=== PATIENT | male | born 1950 | race Caucasian/White ===

== ENCOUNTER → 2016-04-23 | Outpatient (CLI) | payer OTHER ==
[~2016-04-23] MED LIST: GADOBUTROL 10 ML VIAL IVP ONE
--- NOTE | 2016-04-23 13:22 | MR ---
MRI of the Brain(Without and With Contrast) Contrast: 7 mL intravenous Gadavist without complication. 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 Axial fast T2 2nd echo, GRE, diffusion and FLAIR im ages. Postgadolinium sagittal, axial and coronal images. Findings: There are slight differences in slice acquisition and significant difference in head positi on between the studies. The high right parietal operative cavity has significantly decreased in size and currently measures 7 x 5 mm with a small hemosiderin ring. There is no marginal or internal gadolinium enhancement. Adjac ent postoperative vasogenic edema has dramatically improved and only a limited amount remains. The [place] flap remains in anatomic alignment. There is no midline shift. Ventricular size is stable. The second, nonenhancing , right posterior parietal periventricular oval lesion (T1 hypointense, T2 h yperintense), has not significantly changed in size since November considering differences in techn ique, although it is impossible to exclude some new subtle localized edema along its posterior margin . A faint thin, subtle enhancing medullary vein is again present coursing horizontally through the l esion (axial image 177, series 10). There is still reduced diffusion within the lesion. Impression: 1. Healing of the right parietal operative bed. No evidence for locally recurrent disease . 2. Little if any change in a second right posterior parietal lesion, of undetermined etiology, possib ly representing a small low-grade glioma
== END ==
LOC: FIMAGING 10:11
PROVIDERS: ATTEND Internal Medicine Hematology & Oncology
DX: Z08 Encounter for follow-up examination after completed treatment for malignant neoplasm (principal); Z92.3 Personal history of irradiation; Z85.841 Personal history of malignant neoplasm of brain
CPT/HCPCS: 70553; A9585

== ENCOUNTER → 2016-08-12 | Outpatient (CLI) | payer OTHER | LOC: FIMAGING 16:49 | PROVIDERS: ATTEND Internal Medicine Hematology & Oncology | DX: Z08 Encounter for follow-up examination after completed treatment for malignant neoplasm (principal); Z85.841 Personal history of malignant neoplasm of brain; G93.9 Disorder of brain, unspecified | CPT/HCPCS: 70553; A9585 ==

== ENCOUNTER → 2016-11-17 | Outpatient (CLI) | payer OTHER | LOC: FIMAGING 09:57 | PROVIDERS: ATTEND Internal Medicine Hematology & Oncology | DX: Z98.890 Other specified postprocedural states (principal); H83.8X1 Other specified diseases of right inner ear; Z85.841 Personal history of malignant neoplasm of brain | CPT/HCPCS: 70553; A9585 ==

== ENCOUNTER → 2017-02-21 | Outpatient (CLI) | payer OTHER | LOC: FIMAGING 09:51 | PROVIDERS: ATTEND Internal Medicine Hematology & Oncology | DX: Z08 Encounter for follow-up examination after completed treatment for malignant neoplasm (principal); C71.9 Malignant neoplasm of brain, unspecified; R90.82 White matter disease, unspecified | CPT/HCPCS: 70553; A9585 ==

== ENCOUNTER → 2017-05-20 | Outpatient (CLI) | payer OTHER | LOC: FIMAGING 09:56 | PROVIDERS: ATTEND Internal Medicine Hematology & Oncology | DX: Z08 Encounter for follow-up examination after completed treatment for malignant neoplasm (principal); Z85.841 Personal history of malignant neoplasm of brain | CPT/HCPCS: 70553; A9585 ==

== ENCOUNTER → 2017-08-25 | Outpatient (CLI) | payer OTHER | LOC: FIMAGING 10:10 | PROVIDERS: ATTEND Internal Medicine Hematology & Oncology | DX: Z08 Encounter for follow-up examination after completed treatment for malignant neoplasm (principal); D33.3 Benign neoplasm of cranial nerves; Z85.841 Personal history of malignant neoplasm of brain; Z98.890 Other specified postprocedural states | CPT/HCPCS: 70553; A9585 ==

== ENCOUNTER → 2017-12-15 | Outpatient (CLI) | payer OTHER | LOC: FIMAGING 11:59 | PROVIDERS: ATTEND Internal Medicine Hematology & Oncology | DX: C71.9 Malignant neoplasm of brain, unspecified (principal); D33.3 Benign neoplasm of cranial nerves | CPT/HCPCS: 70553; A9585; 82565-PO ==

== ENCOUNTER → 2018-04-13 | Outpatient (CLI) | payer OTHER | LOC: FIMAGING 15:11 | PROVIDERS: ATTEND Internal Medicine Hematology & Oncology | DX: C71.9 Malignant neoplasm of brain, unspecified (principal) | CPT/HCPCS: 70553; A9585 ==

== ENCOUNTER → 2018-08-02 | Outpatient (CLI) | payer OTHER | LOC: FIMAGING 11:04 | PROVIDERS: ATTEND Internal Medicine Hematology & Oncology | DX: Z08 Encounter for follow-up examination after completed treatment for malignant neoplasm (principal); Z85.841 Personal history of malignant neoplasm of brain; Z98.890 Other specified postprocedural states | CPT/HCPCS: 70553; A9585; 82565-PO ==